=== PATIENT | female | born 1990 | race American Indian/Alaskan Native ===

== ENCOUNTER 2018-05-06 20:03 | Emergency (ER) | payer OTHER ==
[2018-05-06 20:17] VITALS: O2SAT 100
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
[2018-05-06 23:03] VITALS: BP 118/60; PULSE 75; RESP 19; TEMP 98.5
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
== END 2018-05-06 23:42 | disposition home or self-care (01) ==
LOC: ED 20:03
DX: M54.6 Pain in thoracic spine (principal)